=== PATIENT | female | born 1970 | race Caucasian/White ===

== ENCOUNTER 2016-12-07 19:37 | Emergency (ER) | payer BC, MEDICAID ==
--- NOTE | 2016-12-07 20:33 | ED ---
Hernan Santoyo Billy, scribed for Vladimir Borden MD on 12/07/16 at 2007 . GI/ HPI - HPI Summary HPI Summary: Patient is a 46 year-old female coming to [facility] complaining of "problems in the kidney area" since yesterday. She and family state that a urine sample taken yesterday returned positive for UTI. Per triage note, patient c/o constant lower abdominal pain and right flank pain with associated fever, nausea, and headaches. Nothing makes it better or worse. Fever TMax 100.8F. - History of Current Complaint Chief Complaint: EDAbdPain Time Seen by Provider: 12/07/16 19:56 Stated Complaint: ABD PAIN Hx Obtained From: Patient Timing: Constant Severity: Moderate Current Severity: Moderate Location of Pain: LLQ, Flank Associated Signs and Symptoms: Positive: Nausea, Fever, Other: - headache Aggravating Factor(s): Nothing Alleviating Factor(s): Nothing - Additional Pertinent History Primary Care Physician: MYLA - Allergy/Home Medications Allergies/Adverse Reactions: Allergies Allergy/AdvReac Type Severity Reaction Status Date / Time Bee Venom Allergy Intermediate hives, Verified 11/16/16 09:28 throat swelling Latex Allergy Intermediate Rash And Verified 11/16/16 09:28 Itching Erythromycin Allergy Nausea Verified 11/16/16 09:28 Tetracyclines & Related Allergy Nausea Verified 11/16/16 09:28 Warfarin Allergy See Comment Verified 11/16/16 09:28 PMH/Surg Hx/FS Hx/Imm Hx Endocrine/Hematology History: Reports: Hx Diabetes, Hx Thyroid Disease - monitoring - no meds Cardiovascular History: Reports: Hx Hypertension, Other Cardiovascular Problems/ Disorders - tachycardia hx of Denies: Hx Pacemaker/ICD Respiratory History: Reports: Hx Asthma, Hx Sleep Apnea, Other Respiratory Problems/Disorders - small nodule on lung - no TX, just monitoring, Dr. 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, Hx Bursitis - knees Sensory History: Reports: Hx Contacts or Glasses Denies: Hx Hearing Aid Opthamlomology History: Reports: Hx Contacts or Glasses Neurological History: Reports: Hx Migraine, Hx Nerve Disease, Other Neuro Impairments/Disorders - trigeminal neuralgia Psychiatric History: Reports: Hx Anxiety, Hx Depression, Hx Panic Disorder - Cancer History Cancer Type, Location and Year: Cervical - Surgical History Surgery Procedure, Year, and Place: STAR/OVER 20 SURGERIES FOR RENAL STONES BILATERAL WITH STENTS/TUBAL LIGATION Hx Anesthesia Reactions: Yes - after tubal ligation, respiratory distress, was a heavy smoker, but has sto - Family History Known Family History: Positive: Cardiac Disease, Hypertension, Other - lung cancer (mother) - Social History Alcohol Use: None Substance Use Type: Reports: None Smoking Status (MU): Former Smoker Type: Cigarettes Review of Systems Positive: Fever Positive: Abdominal Pain, Nausea Positive: flank pain Positive: Headache All Other Systems Reviewed And Are Negative: Yes Physical Exam Triage Information Reviewed: Yes Vital Signs On Initial Exam: Initial Vital Signs Temp 98.7 F 12/07/16 19:55 Pulse 86 12/07/16 19:55 Resp 20 12/07/16 19:55 BP 146/57 12/07/16 19:55 Pulse Ox 95 12/07/16 19:55 Vital Signs Reviewed: Yes Appearance: Positive: Obese - morbidly Skin: Positive: Warm Head/Face: Positive: Normal Head/Face Inspection Eyes: Positive: SHAMEKA ENT: Positive: Hearing grossly normal Neck: Positive: Supple Respiratory/Lung Sounds: Positive: Clear to Auscultation, Breath Sounds Present Cardiovascular: Positive: Normal Abdomen Description: Positive: Nontender, Soft Bowel Sounds: Positive: Present Musculoskeletal: Positive: Strength/ROM Intact Neurological: Positive: Alert, Oriented to Person Place, Time Psychiatric: Positive: Affect/Mood Appropriate Diagnostics - Vital Signs Vital Signs Temp Pulse Resp BP Pulse Ox 12/07/16 19:55 98.7 F 86 20 146/57 95 - Laboratory Result Diagrams: 12/07/16 20:40 12/07/16 20:40 Lab Statement: Any lab studies that have been ordered have been reviewed, and results considered in the medical decision making process. GIGU Course/Dx - Course Assessment/Plan: 46 year-old female coming to [facility] with CC of abd and flank pain since yesterday. She states positive UTI from urine sample yesterday. She was give IV fluids and Rocephin here in the ED. She will be discharged home with abx to follow up with her PCP. - Diagnoses Provider Diagnoses: UTI (urinary tract infection) Discharge - Discharge Plan Condition: Stable Disposition: HOME Prescriptions: Cefuroxime Axetil [Ceftin] 500 mg PO BID #14 tab Patient Education Materials: Urinary Tract Infection in Women (ED) Referrals: Eagle Arenas MD [Primary Care Provider] - The documentation as recorded by the adolfoibHernan reddy Billy accurately reflects the service I personally performed and the decisions made by me, Vladimir Borden MD.
[2016-12-07 20:57] LABS: Hematocrit 35 % (35-47); Hemoglobin 11.4 g/dl (12.0-16.0); Mean Corpuscular HGB Conc 33 g/dl (31-36); Mean Corpuscular Hemoglobin 28 pg (27-31); Mean Corpuscular Volume 85 fL (80-97); Mean Platelet Volume 8 um3 (7.4-10.4); Red Blood Count 4.07 10^6/ul (4.0-5.4); Red Cell Distribution Width 15 % (10.5-15); White Blood Count 10.9 10^3/ul (3.5-10.8)
[2016-12-07] MEDS ORDERED: cefTRIAXone(*) 1 GM in NS 0.9% 50 ML* 50 ML IVPB ONE (21:01)
[2016-12-07] MEDS ORDERED: NS 0.9% 1000 ML* 1,000 ML IV ONE (21:01)
[2016-12-07 21:11] LABS: BUN/Creatinine Ratio 14.5 (8-20); Calcium 9.1 mg/dL (8.6-10.3); EGFR African American 117.8 (>60); EGFR Non-African American 91.6 (>60); Potassium 3.4 mmol/L (3.5-5.0)
[2016-12-07 22:01] VITALS: BP 140/66
== END 2016-12-07 22:00 | disposition home or self-care (01) ==
LOC: ED 19:37
DX: N39.0 Urinary tract infection, site not specified (principal); R10.32 Left lower quadrant pain; R11.0 Nausea; R50.9 Fever, unspecified; R51 Headache; Z87.891 Personal history of nicotine dependence
CPT/HCPCS: 36415; 80048; 85025; 96365; 99283; J0696

== ENCOUNTER 2017-01-11 11:26 | Emergency (ER) | payer BC, OTHER ==
[2017-01-11 13:03] LABS: Hematocrit 40 % (35-47); Hemoglobin 12.9 g/dl (12.0-16.0); Mean Corpuscular HGB Conc 32 g/dl (31-36); Mean Corpuscular Hemoglobin 27 pg (27-31); Mean Corpuscular Volume 85 fL (80-97); Mean Platelet Volume 8 um3 (7.4-10.4); Red Blood Count 4.71 10^6/ul (4.0-5.4); Red Cell Distribution Width 15 % (10.5-15); White Blood Count 12.1 10^3/ul (3.5-10.8)
[2017-01-11 13:18] LABS: ALT 19 U/L (7-52); AST 13 U/L (13-39); Albumin 3.8 g/dL (3.2-5.2); Alkaline Phosphatase 64 U/L (34-104); Anion Gap 12 mmol/L (2-11); BUN/Creatinine Ratio 15.5 (8-20); Blood Urea Nitrogen 11 mg/dL (6-24); C Reactive Protein 40.58 mg/L (< 5.00); CO2 Carbon Dioxide 27 mmol/L (22-32); Calcium 9.5 mg/dL (8.6-10.3); Chloride 96 mmol/L (101-111); EGFR Non-African American 88.6 (>60); Globulin 3.2 g/dL (2-4); Glucose 182 mg/dL (70-100); Lipase < 10 U/L (11.0-82.0); Potassium 3.5 mmol/L (3.5-5.0); Sodium 135 mmol/L (133-145)
[2017-01-11 13:33] LABS: Urine Bacteria 3+ (Absent); Urine Bilirubin Negative (Negative); Urine Glucose Negative (Negative); Urine Nitrite Positive (Negative)
[2017-01-11] MEDS ORDERED: Levofloxacin 750 MG IVPREMIX(* 750 MG/150 ML BAG IVPB ONE (13:42)
--- NOTE | 2017-01-11 13:58 | RAD ---
CLINICAL HISTORY: Bilateral flank pain, painful urination COMPARISON: January 08, 2015 TECHNIQUE: Multiple contiguous axial CT scans were obtained of the abdomen and pelvis, without intravenous contrast enhancement. Coronal and sagittal multiplanar reformations are submitted for review. Oral contrast was not administered. FINDINGS: The study is limited by the lack of intravenous contrast. This limits evaluation of the solid organs and vasculature. Evaluation is limited by body habitus LUNG BASES: Again noted is a rounded nodule of the right lower lobe measuring 1.1 cm. This is stable from the previous examination LIVER: The liver is diffusely low in attenuation compared to the spleen. There are no focal hepatic parenchymal masses. BILE DUCTS: There is no intrahepatic or extrahepatic biliary dilatation. GALLBLADDER: The gallbladder is not visualized. Surgical clips are noted in the gallbladder fossa. PANCREAS: There is fatty atrophy of the pancreas. SPLEEN: Normal in size and appearance. UPPER GI TRACT: Evaluation of the gastrointestinal tract is limited by incomplete gastric distention. The upper GI tract is unremarkable. SMALL BOWEL AND MESENTERY: The small bowel is normal in contour, course, and caliber. There is no obstruction or dilatation. COLON: The colon is normal in contour, course, caliber. There is no pericolonic inflammatory change. ADRENALS: There is a stable right adrenal nodule measuring 7 Hounsfield units, most consistent with an adrenal adenoma. KIDNEYS: The kidneys are normal in shape, size, contour, and axis. There is no hydronephrosis or nephrolithiasis. BLADDER: The bladder is smooth in contour. PELVIC ORGANS: The uterus and adnexa are grossly normal for technique. AORTA: The aorta is normal. IVC: Unremarkable LYMPH NODES: There is no lymphadenopathy by size criteria. ABDOMINAL WALL: There is no evidence for abdominal wall hernia. BONES AND SOFT TISSUES: There are mild diffuse degenerative changes. OTHER: None IMPRESSION: 1. NO HYDRONEPHROSIS OR NEPHROLITHIASIS. 2. STABLE RIGHT ADRENAL ADENOMA. 3. FATTY LIVER. 4. STABLE RIGHT LOWER LOBE NODULE
--- NOTE | 2017-01-11 15:14 | ED ---
Hernan Santoyo Billy, scribed for Marcelo Liriano MD on 01/11/17 at 1218 . GI/ HPI - HPI Summary HPI Summary: Patient is a 46 year-old female coming to [facility] presenting with constant bilateral pelvic pain for the last 4 weeks. Pain severity 6/10. She describes dysuria but denies any abnormal vaginal discharge/bleeding. She states that she has been treated with 4x different courses of antibiotics without any improvement to her symptoms. Patient has a history of frequent kidney stones, kidney infection, and cervical cancer. - History of Current Complaint Chief Complaint: EDUrogenitalProblems Time Seen by Provider: 01/11/17 11:43 Stated Complaint: PAINFUL URINATION Hx Obtained From: Patient Onset/Duration: Started Weeks Ago, Still Present Timing: Constant Severity: Moderate Current Severity: Moderate Pain Intensity: 6 Associated Signs and Symptoms: Positive: Dysuria Aggravating Factor(s): Nothing Alleviating Factor(s): Nothing - Additional Pertinent History Primary Care Physician: MYLA - Allergy/Home Medications Allergies/Adverse Reactions: Allergies Allergy/AdvReac Type Severity Reaction Status Date / Time Bee Venom Allergy Intermediate hives, Verified 01/11/17 11:34 throat swelling Latex Allergy Intermediate Rash And Verified 01/11/17 11:34 Itching Erythromycin Allergy Nausea Verified 01/11/17 11:34 Tetracyclines & Related Allergy Nausea Verified 01/11/17 11:34 Warfarin Allergy See Comment Verified 01/11/17 11:34 PMH/Surg Hx/FS Hx/Imm Hx Endocrine/Hematology History: Reports: Hx Diabetes, Hx Thyroid Disease - monitoring - no meds Cardiovascular History: Reports: Hx Hypertension, Other Cardiovascular Problems/ Disorders - tachycardia hx of Denies: Hx Pacemaker/ICD Respiratory History: Reports: Hx Asthma, Hx Sleep Apnea, Other Respiratory Problems/Disorders - small nodule on lung - no TX, just monitoring, Dr. 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, Hx Bursitis - knees Sensory History: Reports: Hx Contacts or Glasses Denies: Hx Hearing Aid Opthamlomology History: Reports: Hx Contacts or Glasses Neurological History: Reports: Hx Migraine, Hx Nerve Disease, Other Neuro Impairments/Disorders - trigeminal neuralgia Psychiatric History: Reports: Hx Anxiety, Hx Depression, Hx Panic Disorder - Cancer History Cancer Type, Location and Year: Cervical - Surgical History Surgery Procedure, Year, and Place: STAR/OVER 20 SURGERIES FOR RENAL STONES BILATERAL WITH STENTS/TUBAL LIGATION Hx Anesthesia Reactions: Yes - after tubal ligation, respiratory distress, was a heavy smoker, but has sto Infectious Disease History: No Infectious Disease History: Denies: Traveled Outside the [place] in Last 30 Days - Family History Known Family History: Positive: Cardiac Disease, Hypertension, Other - lung cancer (mother) - Social History Alcohol Use: None Substance Use Type: Reports: None Smoking Status (MU): Former Smoker Type: Cigarettes Review of Systems Negative: Fever Positive: dysuria, other - pelvic pain All Other Systems Reviewed And Are Negative: Yes Physical Exam - Summary Physical Exam Summary: VITAL SIGNS: Reviewed. GENERAL: Patient is an obese female who is lying comfortable in the stretcher. Patient is not in any acute respiratory distress. HEAD AND FACE: Normocephalic and atraumatic. EYES: PERRLA, EOMI x 2, No injected conjunctiva. EARS: Hearing grossly intact. Ear canals and tympanic membranes are WNL. MOUTH: Oropharynx within normal limits. NECK: Supple, trachea is midline, no adenopathy, no JVD. CHEST: Symmetric, no tenderness at palpation LUNGS: Clear to auscultation bilaterally. No wheezing or crackles. CVS: RRR,, S1 and S2 present, no murmurs or gallops appreciated. ABDOMEN: Soft, obese non-tender. No signs of distention. Positive bowel sounds. No rebound no guarding, and no masses palpated. No abdominal bruit or pulsations. EXTREMITIES: FROM in all major joints, no edema, no cyanosis or clubbing. NEURO: Alert and oriented x 3. No acute neurological deficits. Speech is normal. SKIN: Dry and warm Triage Information Reviewed: Yes Vital Signs On Initial Exam: Initial Vitals Temp Pulse Resp BP Pulse Ox 97.3 F 106 20 166/91 97 01/11/17 11:34 01/11/17 11:34 01/11/17 11:34 01/11/17 11:34 01/11/17 11:34 Vital Signs Reviewed: Yes Diagnostics - Vital Signs Vital Signs Temp Pulse Resp BP Pulse Ox 01/11/17 11:34 97.3 F 106 20 166/91 97 - Laboratory Result Diagrams: 01/11/17 12:10 01/11/17 12:10 Lab Statement: Any lab studies that have been ordered have been reviewed, and results considered in the medical decision making process. - CT abd/pel CT Interpretation Completed By: Radiologist - 1. NO HYDRONEPHROSIS OR NEPHROLITHIASIS. 2. STABLE RIGHT ADRENAL ADENOMA. 3. FATTY LIVER.[facility] 4. STABLE RIGHT LOWER LOBE NODULE GIGU Course/Dx - Course Assessment/Plan: Patient is a 46 year-old female coming to [facility] presenting with constant bilateral pelvic pain for the last 4 weeks. Pain severity 6/10. She describes dysuria but denies any abnormal vaginal discharge/bleeding. She states that she has been treated with 4x different courses of antibiotics without any improvement to her symptoms. Patient has a history of frequent kidney stones, kidney infection, and cervical cancer. Bloodwork WNL except for WBC of 12.1, glucose of 182, and UA with positive UTI. In the ED course, patient was given IV fluids and Levaquin for the UTI. I chose Levaquin after looking at her old urine cultures and it shows the best sensitivity for a UTI. She usually has Klebsiella pneumoniae which is sensitive to Levaquin. CT abd/ pel was ordered to r/o kidney stones, and it returned negative for kidney stones. At this point, she is symptom-free, is tolerating PO without N/V and will follow up with PCP. - Diagnoses Differential Diagnoses - Female: Other - UTI, ureter lithiasis, abdominal pain Provider Diagnoses: UTI (urinary tract infection) Discharge - Discharge Plan Condition: Stable Disposition: HOME Prescriptions: Levofloxacin TAB* [Levaquin TAB*] 750 mg PO DAILY #10 tab Patient Education Materials: Urinary Tract Infection in Women (ED) Referrals: Eagle Arenas MD [Primary Care Provider] - The documentation as recorded by the Hernan parsons Billy accurately reflects the service I personally performed and the decisions made by me, Marcelo Liriano MD.
[2017-01-11 15:50] VITALS: BP 149/81
--- NOTE | 2017-01-13 06:56 | PN ---
Progress Note - Progress Note Note: Preliminary urine culture grew Klebsiella Pneumoniae. patient placed o Levofloxacin covering organism. Will wait for sensitivities. Nothing further at this time.
== END 2017-01-11 15:49 | disposition home or self-care (01) ==
LOC: ED 11:26
DX: N39.0 Urinary tract infection, site not specified (principal); R30.0 Dysuria; R10.2 Pelvic and perineal pain
CPT/HCPCS: 36415; 74176; 80053; 81003; 81015; 83605; 83690; 84702; 85025; 86140; 87077; 87086; 87186; 99283

== ENCOUNTER 2017-05-14 12:42 | Emergency (ER) | payer BC, MEDICAID ==
[2017-05-14 13:30] VITALS: BP 173/95
--- NOTE | 2017-05-14 13:35 | UC ---
María Elena Santoyo Alok, scribed for Eagle Odell MD on 05/14/17 at 1256 . HPI Febrile Illness - HPI Summary HPI Summary: 47F presents to the [facility] with a fever and nausea for the last 2-3 days. Pt also notes myalgia at the right shoulder and right arm which comes and goes for the last 2-3 days. Pt notes chest tightness which comes and goes for the last few months. Pt notes high sugar recently. PMHx includes DM, h/o C.diff, and fibromyalgia. - History of Current Complaint Hx Obtained From: Patient Onset/Duration: Started Days Ago - myalgia, Started Weeks Ago - CP, Atraumatic, Still Present Timing: Intermittent Initial Severity: Moderate Current Severity: Moderate Aggravating Factors: Nothing Alleviating Factors: Nothing Associated Signs and Symptoms: Myalgia, Nausea - Additional Pertinent History Primary Care Physician: MYLA - Allergy/Home Medications Allergies/Adverse Reactions: Allergies Allergy/AdvReac Type Severity Reaction Status Date / Time Bee Venom Allergy Intermediate hives, Verified 05/14/17 13:20 throat swelling Latex Allergy Intermediate Rash And Verified 05/14/17 13:20 Itching Erythromycin Allergy Nausea Verified 05/14/17 13:20 Tetracyclines & Related Allergy Nausea Verified 05/14/17 13:20 Warfarin Allergy See Comment Verified 05/14/17 13:20 PMH/Surg Hx/FS Hx/Imm Hx Endocrine/Hematology History: Reports: Hx Diabetes, Hx Thyroid Disease - monitoring - no meds Cardiovascular History: Reports: Hx Hypertension, Other Cardiovascular Problems/ Disorders - tachycardia hx of Denies: Hx Pacemaker/ICD Respiratory History: Reports: Hx Asthma, Hx Sleep Apnea, Other Respiratory Problems/Disorders - small nodule on lung - no TX, just monitoring, Dr. 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, Hx Bursitis - knees Sensory History: Reports: Hx Contacts or Glasses Denies: Hx Hearing Aid Opthamlomology History: Reports: Hx Contacts or Glasses Neurological History: Reports: Hx Migraine, Hx Nerve Disease, Other Neuro Impairments/Disorders - trigeminal neuralgia Psychiatric History: Reports: Hx Anxiety, Hx Depression, Hx Panic Disorder - Cancer History Cancer Type, Location and Year: Cervical - Surgical History Surgery Procedure, Year, and Place: STAR/OVER 20 SURGERIES FOR RENAL STONES BILATERAL WITH STENTS/TUBAL LIGATION Hx Anesthesia Reactions: Yes - after tubal ligation, respiratory distress, was a heavy smoker, but has sto - Family History Known Family History: Positive: Cardiac Disease, Hypertension, Other - lung cancer (mother) - Social History Lives: With Family Alcohol Use: None Substance Use Type: Reports: None Smoking Status (MU): Former Smoker Type: Cigarettes Review of Systems Constitutional: Fever Cardiovascular: Chest Pain Gastrointestinal: Other - nausea Musculoskeletal: Myalgia All Other Systems Reviewed And Are Negative: Yes Physical Exam Triage Information Reviewed: Yes Appearance: Well-Appearing, No Pain Distress Vital Signs: Initial Vital Signs Temp 96.8 F 05/14/17 13:21 Pulse 105 05/14/17 13:21 Resp 28 05/14/17 13:21 BP 173/95 05/14/17 13:21 Pulse Ox 94 05/14/17 13:21 Vital Signs Reviewed: Yes Eyes: Positive: Other: - EOMI, SHAMEKA ENT Exam: Normal Neck: Positive: Supple, Nontender Respiratory: Positive: Lungs clear, Normal breath sounds Cardiovascular: Positive: RRR Abdomen Description: Positive: Nontender, Soft Bowel Sounds: Positive: Present Musculoskeletal Exam: Normal Musculoskeletal: Positive: Strength Intact, ROM Intact Neurological Exam: Normal Neurological: Positive: Other: - Alert & Oriented x3. Sensory/Motor intact Psychological: Positive: Other: - affect/mood appropriate Skin: Positive: Other - warm, dry, color reflects adequate perfusion Diagnostics - EKG Cardiac Rate: NL - 97 bpm Cardiac Rhythm: Sinus: Normal - TIME: 1248. Extensive baseline artifact Course/Dx - Course Course Of Treatment: Pt medications reviewed this visit. TRANSFER TO [facility] ED FOR FURTHER EVALUATION AND CARE. - Diagnoses Clinic Provider Diagnoses: CHEST PAIN, ABDOMINAL PAIN, EDEMA, LEG PAIN, CHILLS, WEAKNESS, HYPERGYCEMIA IN DIABETES. Discharge - Discharge Plan Condition: Stable [facility] Referrals: Skip Hagen DO [Primary Care Provider] - The documentation as recorded by the María Elena parsons Alok accurately reflects the service I personally performed and the decisions made by me, Eagle Odell MD.
== END 2017-05-14 14:10 | disposition short-term general hospital (02) ==
LOC: UCEAST 12:42
DX: R07.9 Chest pain, unspecified (principal); R10.9 Unspecified abdominal pain; R60.9 Edema, unspecified; M79.606 Pain in leg, unspecified; R68.83 Chills (without fever); E11.65 Type 2 diabetes mellitus with hyperglycemia; R53.1 Weakness
CPT/HCPCS: 99203; G0463

== ENCOUNTER 2017-05-14 14:36 | Emergency (ER) | payer BC, MEDICAID ==
[2017-05-14 16:18] LABS: Urine Bacteria Absent (Absent); Urine Bilirubin Negative (Negative); Urine Glucose 3+(>=500 mg/dL) (Negative); Urine Nitrite Negative (Negative)
[2017-05-14] MEDS ORDERED: oxyCODONE/Acetamin 5/325 MG* TAB PO ONE (16:21)
[2017-05-14 16:27] LABS: Hematocrit 41 % (35-47); Hemoglobin 13.3 g/dl (12.0-16.0); Mean Corpuscular HGB Conc 32 g/dl (31-36); Mean Corpuscular Hemoglobin 26 pg (27-31); Mean Corpuscular Volume 82 fL (80-97); Mean Platelet Volume 9 um3 (7.4-10.4); Red Blood Count 5.03 10^6/ul (4.0-5.4); Red Cell Distribution Width 16 % (10.5-15)
[2017-05-14 16:42] LABS: Albumin 3.9 g/dL (3.2-5.2); BUN/Creatinine Ratio 15.5 (8-20); C Reactive Protein 33.65 mg/L (< 5.00); Calcium 9.7 mg/dL (8.6-10.3); EGFR African American 113.5 (>60); EGFR Non-African American 88.2 (>60); Globulin 3.1 g/dL (2-4); Potassium 3.4 mmol/L (3.5-5.0); Total Bilirubin 0.3 mg/dL (0.2-1.0)
[2017-05-14] MEDS ORDERED: NS 0.9% 1000 ML* 1,000 ML IV ONE (17:03)
[2017-05-14] MEDS ORDERED: Insulin REGULAR(*) 1 UNITS UNIT SUBCUT ONE (17:03)
--- NOTE | 2017-05-14 19:33 | RAD ---
HISTORY: Left leg pain and edema COMPARISONS: None relevant TECHNIQUE: Multiple transverse and longitudinal ultrasound images were obtained of the left lower extremity from the level of the common femoral vein inferiorly through to the infrapopliteal veins using grayscale, color Doppler, and spectral Doppler imaging with and without compression and with augmentation. Comparison images were obtained of the contralateral common femoral vein. FINDINGS: The study is limited by patient body habitus. VEINS: There is suboptimal visualization of the calf veins. The remainder of the venous system of the left lower extremity is compressible throughout its course, with normal flow on color Doppler imaging and normal response to augmentation on spectral Doppler imaging. SOFT TISSUES: Unremarkable. OTHER FINDINGS: None. IMPRESSION: LIMITED STUDY. NO LEFT LOWER EXTREMITY DEEP VEIN THROMBOSIS
--- NOTE | 2017-05-14 20:13 | ED ---
Daniel Santoyo Benjamin, scribed for Vladimir Borden MD on 05/14/17 at 1943 . Progress - Progress Note Progress Note: Signout pt from Dr. Liriano, pending Lower Extremities Doppler US. This is a diabetic 47yo female c/o hyperglycemia, bilateral LE swelling, and weakness. - Results/Orders Results/Orders: Lower Extremities Doppler US : no DVT. Course/Dx - Diagnoses Provider Diagnoses: Fatigue, Hyperglycemia The documentation as recorded by the adolfoibDaniel reddy Benjamin accurately reflects the service I personally performed and the decisions made by , Vladimir Borden MD.
[2017-05-14 20:16] VITALS: BP 140/81
--- NOTE | 2017-05-16 07:29 | ED ---
Kianna Santoyo Thomas, scribed for Marcelo Liriano MD on 05/14/17 at 1514 . Complex/Multi-Sys Presentation - HPI Summary HPI Summary: The pt is a 47 y/o female presenting to the ED referred from [facility] who c/o hyperglycemia and generalized illness over the past week. Her family member states that her BG typically is 140-190 although in the past week it has been 270-360. She claims that her high BG stemmed from a D&C and placement of two Mirena IUDs. Additionally complains of diffuse weakness, MAX, fatigue, bilateral LE swelling (worse on her LLE), fever, myalgia, edema, gastrointestinal bloating. Associated pain is currently moderate, ranked 7/10. Denies any dietary changes. - History Of Current Complaint Chief Complaint: EDGeneral Time Seen by Provider: 05/14/17 14:50 Hx Obtained From: Patient Onset/Duration: Lasting Days, Still Present Timing: Constant, Days Severity Currently: Moderate Severity Initially: Moderate Location: Pain At: - Diffuse myalgias and MAX Aggravating Factor(s): None Alleviating Factor(s): None Associated Signs And Symptoms: Positive: Weakness - diffuse, Headache, Edema, Other - Fatigue, fever, myalgia, gastrointestinal bloating - Allergies/Home Medications Allergies/Adverse Reactions: Allergies Allergy/AdvReac Type Severity Reaction Status Date / Time Bee Venom Allergy Intermediate hives, Verified 05/14/17 13:20 throat swelling Latex Allergy Intermediate Rash And Verified 05/14/17 13:20 Itching Erythromycin Allergy Nausea Verified 05/14/17 13:20 Tetracyclines & Related Allergy Nausea Verified 05/14/17 13:20 Warfarin Allergy See Comment Verified 05/14/17 13:20 Home Medications: Home Medications DULoxetine DR CAP* [Cymbalta CAP*] 60 mg PO BID 05/14/17 [History Confirmed ] Dronabinol CAP* [Marinol CAP*] 5 mg PO QPM MDD 8 caps 05/14/17 [History Confirmed 05/14/17] Escitalopram (NF) [Lexapro 20 mg (NF)] 30 mg PO DAILY 05/14/17 [History Confirmed 05/14/17] Fluticasone NASAL SPRAY 50MCG* [Flonase NASAL SPRAY 50MCG*] 2 spray BOTH NARES DAILY 05/14/17 [History Confirmed 05/14/17] Milnacipran(NF) [Savella(NF)] 50 mg PO BID 05/14/17 [History Confirmed 05/14/17] Morphine TAB (NF) 22.5 mg PO Q4HR PRN MDD 135 mg 05/14/17 [History Confirmed ] OXcarbazepine TAB(*) [Trileptal 300 mg TAB(*)] 300 mg PO TID 05/14/17 [History Confirmed 05/14/17] Potassium Citrate (NF) [Urocit-K 10 (NF)] 10 meq PO TID 05/14/17 [History Confirmed 05/14/17] Probiotic Product [Acidophilus] 1 cap PO DAILY 05/14/17 [History Confirmed 05/14] Rizatriptan (NF) [Maxalt-Lumber Hacker (NF)] 10 mg PO DAILY PRN MDD 30 mg / 24 hours 05/14 [History Confirmed 05/14/17] PMH/Surg Hx/FS Hx/Imm Hx Endocrine/Hematology History: Reports: Hx Diabetes, Hx Thyroid Disease - monitoring - no meds Cardiovascular History: Reports: Hx Hypertension, Other Cardiovascular Problems/ Disorders - tachycardia hx of Denies: Hx Pacemaker/ICD Respiratory History: Reports: Hx Asthma, Hx Chronic Obstructive Pulmonary Disease (COPD), Hx Sleep Apnea, Other Respiratory Problems/Disorders - small nodule on lung - no TX, just monitoring, Dr. 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, Hx Bursitis - knees Sensory History: Reports: Hx Contacts or Glasses Denies: Hx Hearing Aid Opthamlomology History: Reports: Hx Contacts or Glasses Neurological History: Reports: Hx Migraine, Hx Nerve Disease, Other Neuro Impairments/Disorders - trigeminal neuralgia Psychiatric History: Reports: Hx Anxiety, Hx Depression, Hx Panic Disorder - Cancer History Cancer Type, Location and Year: Cervical - Surgical History Surgery Procedure, Year, and Place: STAR/OVER 20 SURGERIES FOR RENAL STONES BILATERAL WITH STENTS/TUBAL LIGATION Hx Anesthesia Reactions: Yes - after tubal ligation, respiratory distress, was a heavy smoker, but has sto Infectious Disease History: No Infectious Disease History: Reports: Hx Clostridium Difficile Denies: History Other Infectious Disease, Traveled Outside the [place] in Last 30 Days - Family History Known Family History: Positive: Unknown, Cardiac Disease, Hypertension, Other - lung cancer (mother) - Social History Alcohol Use: None Substance Use Type: Reports: Synthetic Drugs Substance Use Comment - Amount & Last Used: marinol Smoking Status (MU): Former Smoker Type: Cigarettes Review of Systems Positive: Other - POS: "bloating" Positive: Myalgia, Edema - bilateral, worse on L leg Positive: Headache, Weakness - diffuse All Other Systems Reviewed And Are Negative: Yes Physical Exam - Summary Physical Exam Summary: VITAL SIGNS: Reviewed. GENERAL: ~Patient is an obese female who is lying comfortably in the stretcher. ~Patient is not in any acute respiratory distress. HEAD AND FACE: No signs of trauma. ~No ecchymosis, hematomas or skull depressions. No sinus tenderness. EYES: PERRLA, EOMI x 2, No injected conjunctiva, no nystagmus. EARS: Hearing grossly intact. Ear canals and tympanic membranes are within normal limits. MOUTH: Oropharynx within normal limits. NECK: Supple, trachea is midline, no adenopathy, no JVD, no carotid bruit, no c- spine tenderness, neck with full ROM. CHEST: Symmetric, no tenderness at palpation LUNGS: Clear to auscultation bilaterally. No wheezing or crackles. CVS: Regular rate and rhythm, S1 and S2 present, no murmurs or gallops appreciated. ABDOMEN: Soft, non-tender. No signs of distention. No rebound no guarding, and no masses palpated. Bowel sounds are normal. EXTREMITIES: Lymphangitis. No acute swelling. FROM in all major joints, no edema , no cyanosis or clubbing. NEURO: Alert and oriented x 3. No acute neurological deficits. Speech is normal and follows commands. SKIN: Dry and warm Triage Information Reviewed: Yes Vital Signs On Initial Exam: Initial Vitals Temp Pulse Resp BP Pulse Ox 95.6 F 109 20 160/66 97 05/14/17 14:41 05/14/17 14:41 05/14/17 14:41 05/14/17 14:41 05/14/17 14:41 Vital Signs Reviewed: Yes - [place] Coma Scale Coma Scale Total: 15 Diagnostics - Vital Signs Vital Signs Temp Pulse Resp BP Pulse Ox 05/14/17 14:43 94 96 05/14/17 14:42 160/66 05/14/17 14:41 97.2 F 95 18 160/66 96 - Laboratory Result Diagrams: 05/14/17 16:10 05/14/17 16:06 Lab Statement: Any lab studies that have been ordered have been reviewed, and results considered in the medical decision making process. Complex Multi-Symp Course/Dx Assessment/Plan: Test results within normal limits except WBC 13, sodium of 130 , potassium of 3.4, lactic acid of 3.2 CRP of 33.6. UA is contaminted, therefore we will wait for urine cultures. In the ED course the patient was given IV fluids, the pt was given insulin for the hyperglycemia. The pt was c/o LLE pain and swelling, therefore I ordered an US to r/o DVT. At this time, we are waiting for the US report. if it is negative, the pt will be D/C to home to follow up with PCP. At this time I will sign out to Dr. Borden to follow up with US, repeat the finger stick, reassess whether the patient can be discharged to home. - Diagnoses Provider Diagnoses: Fatigue, Hyperglycemia Discharge - Discharge Plan Condition: Stable Disposition: OTHER Discharge Disposition Comment: Pt signed out to Dr. Borden, pending dispo, awaiting US Referrals: Skip Hagen DO [Primary Care Provider] - The documentation as recorded by the Kianna parsons Thomas accurately reflects the service I personally performed and the decisions made by me, Marcelo Liriano MD.
== END 2017-05-14 20:16 ==
LOC: ED 14:36
DX: R73.9 Hyperglycemia, unspecified (principal); R51 Headache; R53.1 Weakness; R60.9 Edema, unspecified; Z87.891 Personal history of nicotine dependence; R53.83 Other fatigue
CPT/HCPCS: 36415; 80053; 81003; 81015; 83605; 83690; 85025; 86140; 99283; A9270-GY

== ENCOUNTER 2018-09-04 20:55 | Emergency (ER) | payer BC, MEDICAID ==
[2018-09-04 23:45] LABS: Hematocrit 49 % (35-47); Hemoglobin 16.2 g/dl (12.0-16.0); Mean Corpuscular HGB Conc 33 g/dl (31-36); Mean Corpuscular Hemoglobin 29 pg (27-31); Mean Corpuscular Volume 88 fL (80-97); Mean Platelet Volume 7.9 um3 (7.4-10.4); Platelet Count 354 10^3/ul (150-450); Red Blood Count 5.58 10^6/ul (4.00-5.40); Red Cell Distribution Width 17 % (10.5-15); White Blood Count 16.4 10^3/ul (3.5-10.8)
[2018-09-04 23:56] LABS: INR 0.93 (0.77-1.02)
[2018-09-05 00:04] LABS: EGFR Non-African American 81.2 (>60)
--- NOTE | 2018-09-05 00:22 | ED ---
HPI Chest Pain - HPI Summary HPI Summary: Patient has multiple complaints: sternal and right side chest pain radiating to right upper extremity all the way down to hand x months. Pain is sharp, worse at night. Denies trauma. Increase in chronic SOB x 3-4 weeks, with increase in use of home O2 when necessary. Increase in chronic water retention. Low-grade fever with sore throat, chills Increase in chronic Abdominal pain radiating down right hip and leg Decreased urine output Nausea vomiting at night Constipation. Denies cough. Patient also has history of small stable spot in lungs, COPD, asthma, kidney disease, kidney stones, Lyme, RA, DM, HTN, GERD. Abdominal surgical history is cholecystectomy, BTL. Patient is on 64 mg daily of methylprednisone as treatment for lupus. Patient has appointment with sap hana developer 09/19/18 No anti-coag. Long history of immobility. Denies recent surgery, trauma, history of blood clots. Patient on norethindrone (progestin). Hx of small nodule in left lung that is being followed without formal diagnosis. - History of Current Complaint Chief Complaint: EDChestPainROMI Time Seen by Provider: 09/04/18 23:15 Hx Obtained From: Patient, Family/Caption Writer Hx Last Menstrual Period: Pt states heavy bleeder Onset/Duration: Started Weeks Ago Timing: Constant Initial Severity: Moderate Current Severity: Moderate Pain Intensity: 7 Pain Scale Used: 0-10 Numeric Chest Pain Location: Mid Sternal, Right Anterior Chest Pain Radiates: Yes Chest Pain Radiates To:: Shoulder Character: Sharp/Stabbing Aggravating Factor(s): Exertion, Position Alleviating Factor(s): Rest Associated Signs and Symptoms: Positive: Chest Pain, Shortness of Breath, Fever , Chills, Nausea, Abdominal Pain, Vomiting - Risk Factors Pulmonary Embolism Risk Factors: Recent Bedrest - Additional Pertinent History Primary Care Physician: [id number] - Allergy/Home Medications Allergies/Adverse Reactions: Allergies Allergy/AdvReac Type Severity Reaction Status Date / Time bee venom protein (honey bee) Allergy Hives/Diff. Verified 09/04/18 21:11 Breathing/I tching latex Allergy Rash And Verified 09/04/18 21:11 Itching warfarin Allergy See Comment Verified 09/04/18 21:11 erythromycin base AdvReac Intermediate Nausea Verified 09/05/18 09:25 Tetracyclines AdvReac Intermediate Nausea Verified 09/05/18 09:25 PMH/Surg Hx/FS Hx/Imm Hx Endocrine/Hematology History: Reports: Hx Diabetes, Hx Thyroid Disease - monitoring - no meds Denies: Hx Anticoagulant Therapy Cardiovascular History: Reports: Hx Hypertension, Other Cardiovascular Problems/ Disorders - tachycardia hx of Denies: Hx Pacemaker/ICD Respiratory History: Reports: Hx Asthma, Hx Chronic Obstructive Pulmonary Disease (COPD), Hx Sleep Apnea, Other Respiratory Problems/Disorders - small nodule on lung - no TX, just monitoring, Dr. 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, Hx Bursitis - knees Sensory History: Reports: Hx Contacts or Glasses Denies: Hx Hearing Aid Opthamlomology History: Reports: Hx Contacts or Glasses Neurological History: Reports: Hx Migraine, Hx Nerve Disease, Other Neuro Impairments/Disorders - trigeminal neuralgia Psychiatric History: Reports: Hx Anxiety, Hx Depression, Hx Panic Disorder - Cancer History Cancer Type, Location and Year: Cervical - Surgical History Surgery Procedure, Year, and Place: STAR/OVER 20 SURGERIES FOR RENAL STONES BILATERAL WITH STENTS/TUBAL LIGATION Hx Anesthesia Reactions: Yes - after tubal ligation, respiratory distress, was a heavy smoker, but has sto Infectious Disease History: No Infectious Disease History: Reports: Hx Clostridium Difficile Denies: History Other Infectious Disease, Traveled Outside the [place] in Last 30 Days - Family History Known Family History: Positive: Unknown, Cardiac Disease, Hypertension, Other - lung cancer (mother) - Social History Alcohol Use: None Substance Use Type: Reports: Synthetic Drugs Substance Use Comment - Amount & Last Used: marinol Smoking Status (MU): Former Smoker Type: Cigarettes Review of Systems Positive: Fever, Chills Eyes: Negative Positive: Sore Throat Positive: Chest Pain Positive: Shortness Of Breath Positive: Abdominal Pain, Vomiting, Nausea Positive: frequency Positive: Myalgia Skin: Other - water retention Neurological: Negative Psychological: Normal All Other Systems Reviewed And Are Negative: Yes Physical Exam - Summary Physical Exam Summary: Obese patient with area of fluid retention on left knee and central abdomen, as well as diffusely throughout body. Erythema on right side of patient's face which patient states is chronic. Physical exam limited by body habitus. Triage Information Reviewed: Yes Vital Signs On Initial Exam: Initial Vitals Temp Pulse Resp BP Pulse Ox 97.5 F 80 20 169/98 96 09/04/18 21:04 09/04/18 21:04 09/04/18 21:04 09/04/18 21:04 09/04/18 21:04 Vital Signs Reviewed: Yes Appearance: Positive: Well-Nourished Skin: Positive: Warm Head/Face: Positive: Other Eyes: Positive: Normal ENT: Positive: Normal ENT inspection Neck: Positive: Supple Respiratory/Lung Sounds: Positive: Other - Unable to hear well due to body habitus Cardiovascular: Positive: Normal Abdomen Description: Positive: Other: - Unable to palpate abdomen well due to body habitus Musculoskeletal: Positive: Edema Left, Edema Right Neurological: Positive: Normal Psychiatric: Positive: Normal AVPU Assessment: Alert - [place] Coma Scale Best Eye Response: 4 - Spontaneous Best Motor Response: 6 - Obeys Commands Best Verbal Response: 5 - Oriented Coma Scale Total: 15 Diagnostics - Vital Signs Vital Signs Temp Pulse Resp BP Pulse Ox 09/04/18 21:04 97.5 F 80 20 169/98 96 - Laboratory Lab Results: Lab Results 09/04/18 09/04/18 09/04/18 Range/Units 23:35 23:35 23:35 WBC 16.4 H (3.5-10.8) 10^3/ul RBC 5.58 H (4.00-5.40) 10^6/ul Hgb 16.2 H (12.0-16.0) g/dl Hct 49 H (35-47) % MCV 88 (80-97) fL MCH 29 (27-31) pg MCHC 33 (31-36) g/dl RDW 17 H (10.5-15) % Plt Count 354 (150-450) 10^3/ul MPV 7.9 (7.4-10.4) um3 Neut % (Auto) Pending Lymph % (Auto) Pending Bailey % (Auto) Pending Eos % (Auto) Pending Baso % (Auto) Pending Absolute Neuts (auto) Pending Absolute Lymphs (auto) Pending Absolute Monos (auto) Pending Absolute Eos (auto) Pending Absolute Basos (auto) Pending Absolute Nucleated RBC Pending Nucleated RBC % Pending INR (Anticoag Therapy) 0.93 (0.77-1.02) Sodium 135 (135-145) mmol/L Potassium Pending Chloride 94 L (101-111) mmol/L Carbon Dioxide 31 (22-32) mmol/L Anion Gap Pending BUN 27 H (6-24) mg/dL Creatinine 0.76 (0.51-0.95) mg/dL Est GFR ( Amer) 98.3 (>60) Est GFR (Non-Af Amer) 81.2 (>60) BUN/Creatinine Ratio 35.5 H (8-20) Glucose 275 H (70-100) mg/dL Calcium 8.9 (8.6-10.3) mg/dL Total Bilirubin 0.40 (0.2-1.0) mg/dL AST Pending ALT 37 (7-52) U/L Alkaline Phosphatase 32 L (34-104) U/L Troponin I 0.01 (<0.04) ng/mL C-Reactive Protein 2.43 (<8.01) mg/L Total Protein 5.7 L (6.4-8.9) g/dL Albumin 3.4 (3.2-5.2) g/dL Globulin 2.3 (2-4) g/dL Albumin/Globulin Ratio 1.5 (1-3) Lipase 12 (11.0-82.0) U/L TSH Pending Result Diagrams: 09/04/18 23:35 09/04/18 23:35 Lab Statement: Any lab studies that have been ordered have been reviewed, and results considered in the medical decision making process. - Radiology cxr Xray Interpretation: No Acute Changes - Abnormal, same as prior from 2017. Chest Pain Course/Dx - Course Course Of Treatment: Patient has multiple complaints: sternal and right side chest pain radiating to right upper extremity all the way down to hand x months. Pain is sharp, worse at night. Denies trauma. Increase in chronic SOB x 3-4 weeks, with increase in use of home O2 when necessary. Increase in chronic water retention. Low-grade fever with sore throat, chills. Increase in chronic Abdominal pain radiating down right hip and leg. Decreased urine output. Nausea vomiting at night. Constipation. Denies cough. Patient also has history of small stable spot in lungs, COPD, asthma, kidney disease, kidney stones, Lyme, RA, DM, HTN, GERD. Abdominal surgical history is cholecystectomy , BTL. Patient is on 64 mg daily of methylprednisone as treatment for lupus. Patient has appointment with sap hana developer 09/19/18. No anti-coag. Long history of immobility. Denies recent surgery, trauma, history of blood clots. Patient on norethindrone (progestin). Hx of small nodule in left lung that is being followed without formal diagnosis. Physical exam:Obese patient with area of fluid retention on left knee and central abdomen, as well as diffusely throughout body. Erythema on right side of patient's face which patient states is chronic. Physical exam of abdomen and respiratory systems limited by body habitus. Discussed pt with Dr Santiago regarding following: Vital signs within normal limits. EKG unremarkable. Chest x-ray abnormal, but similar to prior from 2017. WBC 16.4, Pt taking daily prednisone 64 mg by mouth. Lactic 4.8. History of similarly elevated lactic on prior visits. Elevated glucose 275. Dr Santiago recommended following. 2L NS for Lactic 4.8. 4 units regular insulin IV given for Elevated glucose 275. CTA chest. CT ab/pel with IV, no oral contrast. - Diagnoses Provider Diagnoses: Chest pain, Abdominal pain Discharge - Sign-Out/Discharge Documenting (check all that apply): Sign-Out Patient Signing out patient TO: Franki Santiago - Discharge Plan Condition: Stable Disposition: HOME Patient Education Materials: Chest Pain (ED), Acute Abdominal Pain (DC) Referrals: Skip Hagen DO [Primary Care Provider] - 2 Days Additional Instructions: RETURN TO THE EMERGENCY DEPARTMENT FOR CHANGING OR WORSENING SYMPTOMS. FOLLOW UP WITH PCP IN 1-2 DAYS. - Billing Disposition and Condition Condition: STABLE Disposition: Home
[2018-09-05] MEDS ORDERED: NS 0.9% 1000 ML* 1,000 ML IV ONE ×2 (00:33→01:37)
[2018-09-05] MEDS ORDERED: Insulin REGULAR(*) 1 UNITS UNIT IV PUSH ONE (00:34)
[2018-09-05 00:44] LABS: ABS Basophils 0.2 10^3/ul (0-0.2); ABS Eosinophils 0 10^3/ul (0-0.6); ABS Lymphocytes 3.2 10^3/ul (1.0-4.8); ABS Monocytes 1.1 10^3/ul (0-0.8); ABS Neutrophils 11.9 10^3/ul (1.5-7.7); ABS Nucleated RBC 0 10^3/ul; Eosinophil % 0.1 % (0-6); Lymphocyte % 19.7 % (25-47); Nucleated Red Blood Cells % 0
[2018-09-05] MEDS ORDERED: Ketorolac INJ* 30 MG/ML 1 ML VIAL IV ONE (01:41)
[2018-09-05] MEDS ORDERED: diPHENhydraMINE IV* 50 MG/ML 1 ml VIAL (BENADRYL) IV ONE (03:26)
[2018-09-05] MEDS ORDERED: Metoclopramide IV* 5 MG/ML 2 ML VIAL IV ONE (03:26)
[2018-09-05] MEDS ORDERED: Iodixanol* (CONTRAST) 320 MG/ML 100 ML SDV IV ONE (05:24)
--- NOTE | 2018-09-05 06:16 | RAD ---
EXAM: CT Angiography Chest With Intravenous Contrast CLINICAL HISTORY: 48 years old, female; Pain; Chest pressure; Abdominal pain; Generalized; Additional info: R/O pe TECHNIQUE: Axial computed tomographic angiography images of the chest with intravenous contrast using pulmonary embolism protocol. All CT scans at this facility use at least one of these dose optimization techniques: automated exposure control; mA and/or kV adjustment per patient size (includes targeted exams where dose is matched to clinical indication); or iterative reconstruction. MIP reconstructed images were created and reviewed. Coronal and sagittal reformatted images were created and reviewed. CONTRAST: 100 mL of VISIPAQUE 320 administered intravenously. COMPARISON: No relevant prior studies available. FINDINGS: Pulmonary arteries: The main pulmonary artery measures 32 mm. Suboptimal opacification of the pulmonary arteries. No gross central pulmonary embolism is identified. Emboli beyond first order branching are not excluded. Aorta: The ascending thoracic aorta measures 34 mm. No gross or obvious aortic dissection is identified distal to the mid arch. Artifact and image degradation precludes detailed evaluation of the ascending thoracic aorta. Lungs: Noncalcified nodule in the posterior right lower lobe measuring 13 mm. Pleural space: Unremarkable. No significant effusion. No pneumothorax. Heart: Unremarkable. No cardiomegaly. No significant pericardial effusion. No evidence of RV dysfunction. Bones/joints: No acute fracture. No dislocation. Soft tissues: Unremarkable. Lymph nodes: Unremarkable. No enlarged lymph nodes. Gallbladder and bile ducts: Status post cholecystectomy. IMPRESSION: 1. Noncalcified nodule in the posterior right lower lobe measuring 13 mm which is similar to the prior study of 01/15/2018. Stability has apparently been previously shown. 2. Suboptimal opacification of pulmonary arteries. No gross central pulmonary embolism is identified. Emboli beyond first order branching are not excluded. 3. Otherwise negative CTA chest. EXAM: CT Abdomen and Pelvis With Intravenous Contrast EXAM DATE/TIME: Exam ordered 09/05/2018 4:57 AM CLINICAL HISTORY: 48 years old, female; Pain; Chest pressure; Abdominal pain; Generalized; Additional info: R/O pe TECHNIQUE: Axial computed tomography images of the abdomen and pelvis with intravenous contrast. All CT scans at this facility use at least one of these dose optimization techniques: automated exposure control; mA and/or kV adjustment per patient size (includes targeted exams where dose is matched to clinical indication); or iterative reconstruction. MIP reconstructed images were created and reviewed. Coronal and sagittal reformatted images were created and reviewed. CONTRAST: 100 mL of VISIPAQUE 320 administered intravenously. 100 mL of VISIPAQUE 320 administered intravenously. COMPARISON: CHEST WO CT CHEST W/O 01/15/2018 11:06 AM FINDINGS: Lung bases: Unremarkable. No mass. No consolidation. ABDOMEN: Liver: Unremarkable. No mass. Gallbladder and bile ducts: Status post cholecystectomy. No ductal dilation. Pancreas: Unremarkable. No mass. No ductal dilation. Spleen: Unremarkable. No splenomegaly. Adrenals: Right adrenal nodule measuring 2.0 x 2.3 cm. Kidneys and ureters: There is focal parenchymal loss in the left kidney. There are left renal cysts measuring up to 2.7 cm. Calcific density in the lower left kidney which may reflect calculi or parenchymal calcification. No hydronephrosis. Stomach and bowel: There are a few sigmoid diverticula without diverticulitis. No obstruction. PELVIS: Appendix: The appendix is not seen. No is inflammatory changes are noted. Bladder: Unremarkable. No mass. Reproductive: Unremarkable as visualized. ABDOMEN and PELVIS: Intraperitoneal space: Unremarkable. No free air. No significant fluid collection. Bones/joints: No acute fracture. No dislocation. Soft tissues: Unremarkable. Vasculature: The abdominal and pelvic vasculature is not well opacified. No abdominal aortic aneurysm. Lymph nodes: Unremarkable. No enlarged lymph nodes. IMPRESSION: 1. Status post cholecystectomy. 2. Right adrenal nodule measuring 2.0 x 2.3 cm. 3. Left renal focal parenchymal loss with associated calcification which may be dystrophic. Nonobstructing calculi are not excluded. 4. Minimal sigmoid diverticulosis without diverticulitis. 5. Otherwise negative CT abdomen/pelvis. To contact [facility] with a general question: [facility] - [phone] For direct physician to physician contact: Physician Hotline - [phone] [facility] ([facility] ID #[id number])
--- NOTE | 2018-09-05 06:45 | ED ---
Progress - Progress Note Progress Note: 03:00- Pt received from AIRAM Cardoso at the end of his shift. Chest/Abd/Pel CT results IMPRESSION: 1. Noncalcified nodule in the posterior right lower lobe measuring 13 mm which is similar to the prior study of 01/15/2018. Stability has apparently been previously shown. 2. Suboptimal opacification of pulmonary arteries. No gross central pulmonary embolism is identified. Emboli beyond first order branching are not excluded. 3. Otherwise negative CTA chest. The ED physician reviewed this radiology report. A CT scan shows a 2x2c m R adrenal nodule and multiple lesions. Labs indicated elevated lactic acid, Normal anion gap and a normal bicarb. The pt was given 2L of fluids in the ED. I informed the pt about the node and advised her to follow up with her PCP. The pt will be discharged with a final Dx of CP and abd pain. Course/Dx - Course Course Of Treatment: Patient has multiple complaints: sternal and right side chest pain radiating to right upper extremity all the way down to hand x months. Pain is sharp, worse at night. Denies trauma. Increase in chronic SOB x 3-4 weeks, with increase in use of home O2 when necessary. Increase in chronic water retention. Low-grade fever with sore throat, chills. Increase in chronic Abdominal pain radiating down right hip and leg. Decreased urine output. Nausea vomiting at night. Constipation. Denies cough. Patient also has history of small stable spot in lungs, COPD, asthma, kidney disease, kidney stones, Lyme, RA, DM, HTN, GERD. Abdominal surgical history is cholecystectomy , BTL. Patient is on 64 mg daily of methylprednisone as treatment for lupus. Patient has appointment with furniture refinisher 09/19/18. No anti-coag. Long history of immobility. Denies recent surgery, trauma, history of blood clots. Patient on norethindrone (progestin). Hx of small nodule in left lung that is being followed without formal diagnosis. Physical exam:Obese patient with area of fluid retention on left knee and central abdomen, as well as diffusely throughout body. Erythema on right side of patient's face which patient states is chronic. Physical exam of abdomen and respiratory systems limited by body habitus. Discussed pt with Dr Santiago regarding following: Vital signs within normal limits. EKG unremarkable. Chest x-ray abnormal, but similar to prior from 2017. WBC 16.4, Pt taking daily prednisone 64 mg by mouth. Lactic 4.8. History of similarly elevated lactic on prior visits. Elevated glucose 275. Dr Santiago recommended following. 2L NS for Lactic 4.8. 4 units regular insulin IV given for Elevated glucose 275. CTA chest. CT ab/pel with IV, no oral contrast. - Diagnoses Provider Diagnoses: Chest pain, Abdominal pain Discharge - Sign-Out/Discharge Documenting (check all that apply): Patient Departure - DC Receiving patient FROM: [facility] - Discharge Plan Condition: Stable Disposition: HOME Patient Education Materials: Chest Pain (ED), Acute Abdominal Pain (DC) Referrals: Skip Hagen DO [Primary Care Provider] - 2 Days Additional Instructions: RETURN TO THE EMERGENCY DEPARTMENT FOR CHANGING OR WORSENING SYMPTOMS. FOLLOW UP WITH PCP IN 1-2 DAYS. - Attestation Statements Document Initiated by Scribe: Yes Documenting Scribe: Kaitlynn Babin Provider For Whom Scribe is Documenting (Include Credential): Dr. Jack Doan MD Scribe Attestation: Kaitlynn Santoyo , scribed for Dr. Jack Doan MD on 09/05/18 at 0727.
--- NOTE | 2018-09-05 07:56 | RAD ---
INDICATION: Right-sided chest pain "for months" COMPARISON: Most recent comparison chest x-ray is dated August 17, 2016 TECHNIQUE: PA and lateral views of the chest were obtained. FINDINGS: The heart and mediastinum are normal in size and contour. There is density obscuring much of the right lung. The left lung is adequately aerated. Visualized bones are normal for the patient's age. There is no radiographic evidence of free air beneath the diaphragm IMPRESSION: DENSITY ASYMMETRICALLY OBSCURING THE RIGHT LUNG WHILE THE LEFT LUNG IS ADEQUATELY AERATED. SUCH AN APPEARANCE COULD BE DUE TO PULMONARY EDEMA, PNEUMONITIS OR CHRONIC INFILTRATIVE PROCESS. R1
[2018-09-05 10:09] VITALS: BP 149/87
== END 2018-09-05 09:58 | disposition home or self-care (01) ==
LOC: ED 20:55
DX: R07.9 Chest pain, unspecified (principal); R10.9 Unspecified abdominal pain; M79.601 Pain in right arm; R06.02 Shortness of breath; R50.9 Fever, unspecified; R11.2 Nausea with vomiting, unspecified; E11.9 Type 2 diabetes mellitus without complications; Z87.891 Personal history of nicotine dependence; J02.9 Acute pharyngitis, unspecified
CPT/HCPCS: 36415; 71046; 71275; 74177; 80053; 82550; 83605; 83690; 83880; 84443; 84484; 85025; 85610; 86140; 87651; 93005; 96361; 96374; 96375; 96376; 99285; J1200; J1885; J2765; Q9967